=== PATIENT | male | born 1955 | race Caucasian/White ===

== ENCOUNTER 2021-11-24 13:32 | Outpatient (CLI) | payer MEDICARE, BC | END 2021-11-24 13:33 | disposition home or self-care (01) | LOC: TBSIIMAG 13:32 | PROVIDERS: ATTEND Physician Assistant | DX: M47.26 Other spondylosis with radiculopathy, lumbar region (principal); M43.16 Spondylolisthesis, lumbar region; M48.061 Spinal stenosis, lumbar region without neurogenic claudication; M71.38 Other bursal cyst, other site | CPT/HCPCS: 72100; 72148 ==

== ENCOUNTER 2021-12-05 16:33 | Outpatient (CLI) | payer MEDICARE, BC ==
[2021-12-05 17:44] LABS: Hemoglobin 13.9 g/dL (13.5-17.5); Mean Corpuscular Hemoglobin 32.8 pg (27.0-33.0); Mean Corpuscular Volume 99.3 fl (81.2-95.1); Mean Platelet Volume 9.7 fl (7.4-10.4); Platelet Count 258 10x3/uL (150-450); RBC Distribution Width 12.5 % (11.5-14.5); Red Blood Cell (RBC) Count 4.24 10x6/uL (4.32-5.72); White Blood Cell (WBC) Count 8.9 10x3/uL (3.5-10.5)
[2021-12-05 17:48] LABS: Anion Gap 10 mmol/L (10-20); BUN (Urea Nitrogen) 19 mg/dL (8.4-25.7); Calc. Creatinine Clearance 0 mL/min (70-130); Calcium 8.9 mg/dL (7.8-10.44); Carbon Dioxide 28 mmol/L (23-31); Chloride 103 mmol/L (98-107); Glucose 97 mg/dL (80-115); INR-International Normal Ratio 0.9; PTT 24.2 sec (22.0-33.0); Potassium 4.2 mmol/L (3.5-5.1); Prothrombin Time 10.3 sec (9.5-12.1); Sodium 137 mmol/L (136-145)
[2021-12-06 18:37] LABS: SARS-CoV-2 PCR by NAA Not Detected (NotDetected)
== END 2021-12-05 16:34 | disposition home or self-care (01) ==
LOC: LABBT 16:33
PROVIDERS: ATTEND Surgery
DX: Z01.818 Encounter for other preprocedural examination (principal); Z20.822 Contact with and (suspected) exposure to COVID-19
CPT/HCPCS: 80048; 85027; 85610; 85730; 93005; U0003; U0005; 93010

== ENCOUNTER 2021-12-08 07:25 | Observation (INO) | payer MEDICARE, BC ==
[2021-12-05 10:11] VITALS: BMI 31.5
[2021-12-08] MEDS ORDERED: Midazolam HCl 2 mg/2 ml Vial ONE (08:46)
[2021-12-08] MEDS ORDERED: Propofol 1,000 MG/100 ML VIAL IV ONE (08:46)
[2021-12-08] MEDS ORDERED: Ketamine 50 MG/ML (10ML VIAL) ONE (08:46)
[2021-12-08] MEDS ORDERED: Fentanyl 100 MCG/2 ML VIAL ONE ×3 (09:12→13:33)
[2021-12-08] MEDS ORDERED: SUGAMMADEX SODIUM 200 MG/2 ML VIAL ONE (09:13)
[2021-12-08] MEDS ORDERED: Thrombin 5000 UNITS/5 ML VIAL ONE (09:16)
[2021-12-08] MEDS ORDERED: ceFAZolin 2 GM/Dextrose 50 ML IVPB ONE (09:32)
[2021-12-08] MEDS ORDERED: Rocuronium Bromide 10 MG/ML (10ML VIAL) ONE (10:05)
[2021-12-08] MEDS ORDERED: Ondansetron PF 4 MG/2 ML Vial ONE (10:05)
[2021-12-08] MEDS ORDERED: Glycopyrrolate 0.2 MG/ML 5 ML SYRINGE ONE (10:05)
[2021-12-08] MEDS ORDERED: Ketorolac Tromethamine 30 MG/ML VIAL ONE (10:05)
[2021-12-08] MEDS ORDERED: ePHEDrine 50 MG/ML VIAL ONE (10:05)
[2021-12-08] MEDS ORDERED: Lidocaine 1% PF 5 ML VIAL ONE (10:05)
[2021-12-08] MEDS ORDERED: PROPOFOL 200 MG/20 ML VIAL ONE (10:05)
[2021-12-08] MEDS ORDERED: Dexamethasone 20 MG/5 ML VIAL ONE (10:05)
[2021-12-08] MEDS ORDERED: PROPOFOL 20 ML ONE (12:24)
[2021-12-08] MEDS ORDERED: Ondansetron HCl/PF 4 MG/2 ML Vial IVP PRN (12:29)
[2021-12-08] MEDS ORDERED: Promethazine HCl 25 MG/ML VIAL IVPB PRN (12:29)
[2021-12-08] MEDS ORDERED: Meperidine HCl/PF 25 MG/ML VIAL SLOW IVP PRN (12:29)
[2021-12-08] MEDS ORDERED: HYDROmorphone 2 MG/ML VIAL SLOW IVP PRN (12:29)
[2021-12-08] MEDS ORDERED: Promethazine HCl 25 MG/ML VIAL IM PRN (12:29)
[2021-12-08] MEDS ORDERED: HYDROcodone/Acetaminophen 7.5/325 mg Tablet PO PRN (12:47)
[2021-12-08] MEDS ORDERED: Acetaminophen 325 MG TAB PO PRN (12:47)
[2021-12-08] MEDS ORDERED: Acetaminophen/Codeine 30-300mg Tablet PO PRN (12:47)
[2021-12-08] MEDS ORDERED: tiZANidine HCl 4 MG TAB PO PRN (12:50)
[2021-12-08] MEDS ORDERED: hydrALAZINE 20 MG/ML VIAL SLOW IVP PRN (12:51)
[2021-12-08] MEDS ORDERED: Morphine 4 MG/ML VIAL SLOW IVP PRN (13:15)
[2021-12-08] MEDS ORDERED: HYDROmorphone 2 MG/ML VIAL ONE (14:56)
[2021-12-08] MEDS: Sodium Chloride 0.9% 1,000 ML IV SCH (16:39)
[2021-12-08] MEDS: Gabapentin 300 MG CAP PO SCH ×2 (16:39→21:29)
[2021-12-08] MEDS ORDERED: metFORMIN 500 MG TAB PO SCH (17:00)
[2021-12-08] MEDS ORDERED: Trospium 20 MG TAB PO SCH (21:00)
[2021-12-08] MEDS ORDERED: Konsyl 6 gm Packet PO SCH (21:00)
[2021-12-08] MEDS ORDERED: Tamsulosin HCl 0.4 MG CAP PO SCH (21:00)
[2021-12-08] MEDS ORDERED: Turmeric Root Extract [Turmeric Curcumin] 500 MG Capsule PO SCH (21:00)
[2021-12-08] MEDS ORDERED: Losartan 25 MG TAB PO SCH (21:00)
[2021-12-08] MEDS ORDERED: Loratadine 10 MG TAB PO SCH (21:00)
[2021-12-08] MEDS ORDERED: valACYclovir 500 MG TAB PO SCH (21:00)
[2021-12-08] MEDS ORDERED: Atorvastatin Calcium 20 MG TAB PO SCH (21:00)
[2021-12-08] MEDS ORDERED: Propranolol 60 MG TAB PO SCH (21:00)
[2021-12-08] MEDS: ceFAZolin 2 GM/Dextrose 50 ML 2 GM in Premix Bag 1 BAG IVPB SCH (21:24)
[2021-12-08] MEDS: Famotidine 20 MG TAB PO SCH (21:28)
[2021-12-08] MEDS: Calcium Carbonate 600 MG + Vit D TAB PO SCH (21:28)
[2021-12-08] MEDS: guaiFENesin ER 600 MG TAB PO SCH (21:30)
[2021-12-08] MEDS ORDERED: Metamucil PACK PO SCH (21:45)
[2021-12-09] MEDS: Sodium Chloride 0.9% 1,000 ML IV SCH (03:00)
[2021-12-09] MEDS: ceFAZolin 2 GM/Dextrose 50 ML 2 GM in Premix Bag 1 BAG IVPB SCH (03:02)
[2021-12-09] MEDS: traMADol HCl 50 MG TAB PO PRN ×2 (03:16→09:17)
[2021-12-09 03:52] VITALS: TEMP 97.6
[2021-12-09 08:23] VITALS: BP 148/89
[2021-12-09] MEDS: Famotidine 20 MG TAB PO SCH (08:39)
[2021-12-09] MEDS: guaiFENesin ER 600 MG TAB PO SCH (08:40)
[2021-12-09] MEDS: Calcium Carbonate 600 MG + Vit D TAB PO SCH (08:40)
[2021-12-09] MEDS: Gabapentin 300 MG CAP PO SCH (08:40)
[2021-12-09] MEDS ORDERED: Multivitamin W/ Minerals 1 TAB PO SCH (09:00)
[2021-12-09] MEDS ORDERED: DULoxetine 30 MG CAP PO SCH (09:00)
[2021-12-09] MEDS ORDERED: Cyanocobalamin (Vitamin B-12) 1,000 MCG TAB PO SCH (09:00)
[2021-12-09] MEDS ORDERED: Cholecalciferol 1,000 UNITS (25 MCG) TAB PO SCH (09:00)
[2021-12-09] MEDS ORDERED: Finasteride 5 MG TAB PO SCH (09:00)
[2021-12-09] MEDS ORDERED: Metamucil PACK PO SCH (21:00)
== END 2021-12-09 09:30 | disposition home or self-care (01) ==
LOC: SDC 07:25 → SJJU 12:53
PROVIDERS: ADMIT Surgery; ATTEND Surgery
PROC: 01NB0ZZ Release Lumbar Nerve, Open Approach (ICD-10-PCS; principal; 2021-12-08)
PROC: 0QB00ZZ Excision of Lumbar Vertebra, Open Approach (ICD-10-PCS; 2021-12-08)
DX: M48.062 Spinal stenosis, lumbar region with neurogenic claudication (principal); M71.38 Other bursal cyst, other site; M51.16 Intervertebral disc disorders with radiculopathy, lumbar region; I10 Essential (primary) hypertension; E78.5 Hyperlipidemia, unspecified; N40.0 Benign prostatic hyperplasia without lower urinary tract symptoms; K21.9 Gastro-esophageal reflux disease without esophagitis; R73.03 Prediabetes; Z79.82 Long term (current) use of aspirin; Z79.84 Long term (current) use of oral hypoglycemic drugs; Z79.899 Other long term (current) drug therapy; Z88.8 Allergy status to other drugs, medicaments and biological substances; Z91.048 Other nonmedicinal substance allergy status
CPT/HCPCS: 76000; 96374; 96376; G0378; J0690; J1100; J1170; J1885; J2250; J2405; J2704; J3010; J3370; J3490

== ENCOUNTER 2022-02-03 13:04 | Outpatient (CLI) | payer MEDICARE, BC | END 2022-02-03 13:05 | disposition home or self-care (01) | LOC: BICULT 13:04 | PROVIDERS: ATTEND Surgery | DX: M79.604 Pain in right leg (principal); M79.605 Pain in left leg | CPT/HCPCS: 93970 ==

== ENCOUNTER 2022-04-26 13:37 | Outpatient (CLI) | payer MEDICARE, BC | END 2022-04-26 13:38 | disposition home or self-care (01) | LOC: TBSIIMAG 13:37 | PROVIDERS: ATTEND Specialist | DX: M47.26 Other spondylosis with radiculopathy, lumbar region (principal); M47.27 Other spondylosis with radiculopathy, lumbosacral region; Z98.890 Other specified postprocedural states | CPT/HCPCS: 72158; 82565 ==

== ENCOUNTER 2022-05-04 14:19 | Outpatient (CLI) | payer MEDICARE, BC | END 2022-05-04 14:20 | disposition home or self-care (01) | LOC: TBSIIMAG 14:19 | PROVIDERS: ATTEND Specialist | DX: M47.26 Other spondylosis with radiculopathy, lumbar region (principal); Z98.890 Other specified postprocedural states | CPT/HCPCS: 72110 ==